=== PATIENT | male | born 1935 | race Caucasian/White ===

== ENCOUNTER 2017-01-22 10:10 | Inpatient (IN) | payer OTHER ==
[~2017-01-22] VITALS: Ht 182.9 cm; Wt 86.7 kg
--- NOTE | 2017-01-22 10:10 | NUR ---
Patient was BIBA and taken to bed 03 via gurney per EMS.
--- NOTE | 2017-01-22 10:12 | NUR ---
Dr. Moore evaluating patient at bedside.
[2017-01-22 10:15] VITALS: BP 98/60
[2017-01-22] MEDS ORDERED: METF500T2 PO (10:23)
--- NOTE | 2017-01-22 10:25 | NUR ---
[facility] SPOKE WITH YAMILETH TORRES STS PT REFUSED BREAKFAST TODAY AND REFUSED MORNING MEDS TODAY. C/O BACK PAIN AND ASKED TO GO TO THE HOSPITAL. AND CHECK BP AND BP LOW. MELISSA CARSON SAID NO MEDICATIONS GIVEN TODAY.
[2017-01-22] MEDS ORDERED: NACL 0.9% 2,000 ML IV SCH (10:27)
--- NOTE | 2017-01-22 10:28 | NUR ---
ASSUMED CARE OF PATIENT; 81/M CARMEN FROM [facility] FOR BACK PAIN; DENIES BACK PAIN AT THIS TIME; UPON EMS ARRIVAL BP 80/50 ON SCENE; PATIENT CHIEF COMPLAINT OF INTERMIITENT ABD PAIN, DIARRHEA X 1 DAY WITH DARK STOOLS, AND DECREASED APPETITE; PATIENT IS A&OX4; NO NUERO DEFICITS NOTED AT THIS TIME; PATIENT HAS REPORTED HISTORY OF DEMENTIA; PATIENT SINUS TACHYCARDIA ON ENGINEER THIRD ASSISTANT; NO EDEMA NOTED; ABD PAIN MILD TENDERESS TO ALL QUADRANTS; PATIENT C/O DIARRHEA X 1 DAY WITH DARK STOOLS AND DECREASED APPETITE; DENIES N/V; DENIES ANY COMPLAINTS; ER MD MAYORGA BY BEDSIDE; PATIENT DENIES ANY PAIN AT THIS TIME; ALL NEEDS MET AT THIS TIME; WILL CONTINUE TO MONITOR
--- NOTE | 2017-01-22 10:33 | NUR ---
HR IMPROVED; SEE VITALS; AWARE; PATIENT IN NO ACUTE DISTRESS; PATIENT DENIES ANY CP, SOB AT THIS TIME; PATIENT TALKING IN FULL SENTENCES TO STAFF; WILL CONTINUE TO MONITOR
[2017-01-22] MEDS ORDERED: MEMA10TA PO (10:35)
[2017-01-22] MEDS ORDERED: CLOP75TA PO (10:35)
[2017-01-22] MEDS ORDERED: DONE10TA3 PO (10:35)
[2017-01-22] MEDS ORDERED: ASPI81TA PO (10:35)
[2017-01-22] MEDS ORDERED: SIMV10TA1 PO (10:35)
[2017-01-22] MEDS ORDERED: LISI10TA11 PO (10:35)
[2017-01-22] MEDS ORDERED: GLIP5TER PO (10:35)
[2017-01-22] MEDS ORDERED: HYDR25TA86 PO (10:35)
--- NOTE | 2017-01-22 10:38 | NUR ---
XRAY at bedside.
[2017-01-22 10:47] LABS: MEAN CORPUSCULAR HGB CONC 32 g/dL (33-37); NEUTROPHILS % (AUTO) 75.9 % (42.2-75.2)
--- NOTE | 2017-01-22 10:48 | NUR ---
US AT BEDSIDE.
[2017-01-22 10:55] LABS: BASOPHILS # (AUTO) 0.2 K/uL (0.00-0.22); BASOPHILS % (AUTO) 2.2 % (0.0-2.0); EOSINOPHILS # (AUTO) 0.4 K/uL (0-0.4); EOSINOPHILS % (AUTO) 3.5 % (0.0-4.0); HEMOGLOBIN 14.4 g/dL (12.0-18.0); LYMPHOCYTES # (AUTO) 1.2 K/uL (2.0-11.5); LYMPHOCYTES % (AUTO) 11.1 % (20.5-51.1); MEAN CORPUSCULAR HEMOGLOBIN 29 pg (27-31); MEAN CORPUSCULAR VOLUME 89 fL (80-94); MONOCYTES # (AUTO) 0.8 K/uL (0.8-1.0); MONOCYTES % (AUTO) 7.3 % (1.7-9.3); PLATELET COUNT (AUTO) 291 K/uL (140-450); RED BLOOD CELL COUNT(AUTO) 5.04 MIL/uL (4.20-6.10); RED CELL DISTRIBUTION WIDTH 13.4 % (11.6-13.7); WHITE BLOOD COUNT (AUTO) 10.6 K/uL (4.8-10.8)
[2017-01-22 11:00] LABS: ANION GAP 13.7 (8-16); CALCIUM 8.7 mg/dL (8.5-10.1); CARBON DIOXIDE 28.5 mmol/L (21-32); CHLORIDE 101 mmol/L (98-107); CREATININE 2.6 mg/dL (0.7-1.3); GLUCOSE 172 mg/dL (74-106); POTASSIUM 4.2 mmol/L (3.5-5.1); SODIUM SERUM 139 mmol/L (136-145); UREA NITROGEN, BLOOD 50 mg/dL (7-18)
[2017-01-22 11:06] LABS: ALANINE AMINOTRANSFERASE 16 U/L (16-63); ALBUMIN 3.2 g/dL (3.4-5.0); ALKALINE PHOSPHATASE 93 U/L (46-116); ASPARTATE AMINOTRANSFERASE 19 U/L (15-37); TOTAL BILIRUBIN 0.6 mg/dL (0.0-1.0); TOTAL PROTEIN, SERUM 7.5 g/dL (6.4-8.2)
[2017-01-22 11:11] LABS: INR 1.2 (0.8-1.2); PARTIAL THROMBOPLASTIN TIME 23.9 secs (22-35.6); PROTHROMBIN TIME 11.9 secs (10.8-13.4)
[2017-01-22] MEDS ORDERED: ASPIRIN 81 MG TAB.CHEW PO ONE (11:30)
[2017-01-22 11:45] LABS: LACTIC ACID 1.3 mmol/L (0.4-2.0)
--- NOTE | 2017-01-22 11:51 | NUR ---
PT APPEARS TO BE RESTING COMFORTABLY IN BED; STATES NO ACUTE DISTRESS AT THIS TIME; VSS; RR EVEN/UNLABORED; GRAND DAUGHTER AT BEDSIDE; POSITIONED FOR COMFORT; WILL CONTINUE TO MONITOR.
--- NOTE | 2017-01-22 12:14 | NUR ---
TRIED TO CALL TO GIVE REPORT; MED SURG NURSE INFORMATICIST ASKED TO CALL BACK IN 5 MINS; WILL FOLLOW UP
--- NOTE | 2017-01-22 12:25 | NUR ---
REPORT GIVEN TO SAM BHANDARI RN; AWAITING ADMIT ORDERS
[2017-01-22] MEDS ORDERED: ONDANSETRON 4 MG/2 ML VIAL IVP PRN (12:30)
[2017-01-22] MEDS ORDERED: ACETAMINOPHEN 325 MG TAB PO PRN (12:30)
[2017-01-22] MEDS ORDERED: LORazepam 2 MG/ML VIAL IVP PRN (12:30)
[2017-01-22] MEDS ORDERED: DEXTROSE 50% 50 ML SYR IVP PRN (12:30)
[2017-01-22] MEDS ORDERED: HYDROcodone/APAP 5/325 MG 1 TAB TAB PO PRN (12:30)
--- NOTE | 2017-01-22 12:30 | NUR ---
PT ARRIVED TO UNIT FROM ER, PT IS AAOX4, ON O2 2L VIA NC, SKIN INTACT, IV TO LEFT AC 20G PATENT AND INTACT, RIGHT AC 20G PATENT AND INTACT, INITIAL ASSESSMENT COMPLETED, REVIEWED PLAN OF CARE WITH PT, PT VERBALIZED UNDERSTANDING, ORIENTED PT TO ROOM AND ENVIRONMENT, ALL SAFETY PRECAUTIONS MET, CALL LIGHT WITHIN REACH. WILL CONTINUE TO MONITOR.
--- NOTE | 2017-01-22 12:36 | NUR ---
[facility]. Admited to TELE. Will go to room 123A. Belongings list completed. Report to SAM DESHPANDE RN.
[2017-01-22 12:38] LABS: BILIRUBIN,URINE 1+ (NEGATIVE); BLOOD, URINE TRACE-I (NEGATIVE); COLOR,URINE YELLOW (YELLOW); LEUKOCYTE ESTERASE ,URINE 2+ (NEGATIVE); PH,URINE 5.5 (5.0-9.0); PROTEIN,URINE 1+ (NEGATIVE); UGLUCOSE NEGATIVE (NEGATIVE); UROBILINOGEN,URINE 0.2 EU/dL (0.2 - 1)
[2017-01-22] MEDS: DEXT 5% /NACL 0.9% 1,000 ML IV SCH (12:48)
[2017-01-22 12:51] LABS: APPEARANCE,URINE SLIGHTLY HAZY (CLEAR)
[2017-01-22 12:52] LABS: ICTOTEST NEGATIVE (NEGATIVE)
[2017-01-22 12:54] LABS: BACTERIA,URINE 1+ /HPF (None Seen); NITRITE, URINE POSITIVE (NEGATIVE); RBC,URINE 0-5 (RARE) /HPF (0-5)
[2017-01-22 12:55] LABS: SQUAMOUS EPITHELIAL CELL,UR 0-3 (FEW) /LPF (0-3 (FEW))
--- NOTE | 2017-01-22 13:45 | NUR ---
PT CURRENTLY SLEEPING, CALL LIGHT WITHIN REACH. WILL CONTINUE TO MONITOR.
[2017-01-22 16:00] VITALS: BP 94/56
--- NOTE | 2017-01-22 16:05 | NUR ---
CHECKED IN ON PT, PT STATES NO SOB OR CHEST PAIN AT THIS TIME. ALL NEEDS MET. WILL CONTINUE TO MONITOR.
[2017-01-22] MEDS: BLOOD GLUCOSE MONITORING 1 DEV DEV FS SCH ×2 (16:38→20:35)
--- NOTE | 2017-01-22 18:08 | NUR ---
PT CURRENTLY EATING DINNER, NO S/S OF RESPIRATORY DISTRESS NOTED. ALL NEEDS MET. WILL CONTINUE TO MONITOR.
[2017-01-22 19:13] LABS: CREATINE KINASE MB 1.2 ng/mL (0-3.6)
--- NOTE | 2017-01-22 19:17 | NUR ---
ENDORSED PLAN OF CARE TO NIGHT NURSE. PT IN STABLE CONDITION.
--- NOTE | 2017-01-22 19:30 | NUR ---
RECEIVED REPORT FROM DAY RN AT BEDSIDE, PATIENT IS AAOX4 ON O2 2L NC, NO SOB OR SIGN OF DISTRESS AT THIS TIME, IV TO RIGHT FA AND LEFT AC PATENT AND INTACT, SKIN INTACT, PT DENIES PAIN AT THIS TIME, DISCUSSED PLAN OF CARE WITH PATIENT, PT VERBALIZED UNDERSTANDING, CALL LIGHT WITHIN REACH. WILL CONTINUE TO MONITOR.
[2017-01-22 20:00] VITALS: BP 95/45
[2017-01-22] MEDS: SIMVASTATIN 10 MG TAB PO SCH (20:35)
--- NOTE | 2017-01-22 20:37 | NUR ---
PM MEDS ADMINISTERED, PT TOLERATED WELL, CALL LIGHT WITHIN REACH, WILL CONTINUE TO MONITOR
[2017-01-23] VITALS: BP 98/55
--- NOTE | 2017-01-23 00:26 | NUR ---
VITAL SIGNS STABLE, NO SOB OR SIGN OF DISTRESS, CALL LIGHT WITHIN REACH, WILL CONTINUE TO MONITOR
--- NOTE | 2017-01-23 02:00 | NUR ---
PT SLEEPING, NO SOB OR SIGN OF DISTRESS AT THIS TIME, CALL LIGHT WITHIN REACH. WILL CONTINUE TO MONITOR.
[2017-01-23 03:07] LABS: CREATINE KINASE MB 0.8 ng/mL (0-3.6)
[2017-01-23 04:00] VITALS: BP 98/47
--- NOTE | 2017-01-23 04:00 | NUR ---
VITAL SIGNS STABLE, NO SOB OR SIGN OF DISTRESS, CALL LIGHT WITHIN REACH. WILL CONTINUE TO MONITOR.
[2017-01-23 06:00] LABS: BASOPHILS # (AUTO) 0.2 K/uL (0.00-0.22); BASOPHILS % (AUTO) 2.1 % (0.0-2.0); EOSINOPHILS # (AUTO) 0.4 K/uL (0-0.4); EOSINOPHILS % (AUTO) 4.6 % (0.0-4.0); HEMATOCRIT 38.5 % (36-52); HEMOGLOBIN 12.5 g/dL (12.0-18.0); LYMPHOCYTES % (AUTO) 23.8 % (20.5-51.1); MEAN CORPUSCULAR HEMOGLOBIN 29 pg (27-31); MEAN CORPUSCULAR HGB CONC 33 g/dL (33-37); MEAN CORPUSCULAR VOLUME 89 fL (80-94); MONOCYTES # (AUTO) 0.7 K/uL (0.8-1.0); MONOCYTES % (AUTO) 8.8 % (1.7-9.3); NEUTROPHILS # (AUTO) 5.2 K/uL (1.8-7.7); NEUTROPHILS % (AUTO) 60.7 % (42.2-75.2); PLATELET COUNT (AUTO) 233 K/uL (140-450); RED CELL DISTRIBUTION WIDTH 13.9 % (11.6-13.7); WHITE BLOOD COUNT (AUTO) 8.5 K/uL (4.8-10.8)
[2017-01-23 06:24] LABS: MAGNESIUM 1.6 mg/dL (1.8-2.4); PHOSPHORUS 3.5 mg/dL (2.5-4.9)
[2017-01-23] MEDS: BLOOD GLUCOSE MONITORING 1 DEV DEV FS SCH ×4 (06:28→21:27)
[2017-01-23] MEDS: INSULIN LISPRO SLIDING SCALE 100 UNITS/ML VIAL SUBQ PRN ×2 (06:28→12:31)
[2017-01-23 06:35] LABS: CARBON DIOXIDE 28.4 mmol/L (21-32); CHLORIDE 105 mmol/L (98-107); CREATININE 1.5 mg/dL (0.7-1.3); GLUCOSE 169 mg/dL (74-106); POTASSIUM 4.4 mmol/L (3.5-5.1); SODIUM SERUM 140 mmol/L (136-145); UREA NITROGEN, BLOOD 29 mg/dL (7-18)
--- NOTE | 2017-01-23 07:30 | NUR ---
ENDORSED PATIENT TO DAY RN AT BEDSIDE, PATIENT IN STABLE CONDITION
--- NOTE | 2017-01-23 07:35 | NUR ---
RECEIVED REPORT FROM JAYLON SCHMID. PT IS RESTING IN BED, A/OX3, BEDREST, IV IS ON LT AC, PATENT, INTACT, FLUSHING WELL, PT IS ON O2 2L NC, NO S/S OF RESPIRATORY DISTRESS OR DISCOMFORT NOTED, SAFETY/FALL PRECAUTIONS ARE IN PLACE, DISCUSSED PLAN OF CARE WITH PT, PT VERBALIZED UNDERSTANDING, CALL LIGHT IS WITHIN REACH, WILL CONTINUE TO MONITOR.
[2017-01-23 08:00] VITALS: BP 94/47
[2017-01-23] MEDS ORDERED: metFORMIN 500 MG TAB PO SCH (08:00)
[2017-01-23] MEDS: CLOPIDOGREL 75 MG TAB PO SCH (08:37)
[2017-01-23] MEDS: MEMANTINE 10 MG TAB PO SCH (08:37)
[2017-01-23] MEDS: DONEPEZIL 10 MG TAB PO SCH (08:37)
[2017-01-23] MEDS: glipiZIDE ER 5 MG TABER PO SCH (08:37)
[2017-01-23] MEDS: ASPIRIN 81 MG TAB.CHEW PO SCH (08:37)
[2017-01-23] MEDS: DEXT 5% /NACL 0.9% 1,000 ML IV SCH (08:38)
[2017-01-23] MEDS: LISINOPRIL 10 MG TAB PO SCH (08:41)
[2017-01-23] MEDS: HYDROCHLOROTHIAZIDE 25 MG TAB PO SCH (08:41)
--- NOTE | 2017-01-23 09:44 | NUR ---
PATIENT HAS BEEN SCREENED AND CATEGORIZED HIGH NUTRITION RISK. PATIENT WILL BE SEEN WITHIN 1-2 DAYS OF ADMISSION. 01/23/17-01/24/[address]
[2017-01-23 12:00] VITALS: BP 114/60
--- NOTE | 2017-01-23 12:45 | NUR ---
SPOKE WITH ZOHAIB AT [facility], . SHE SAID THE CM WILL BE EMELY PHONE [phone] FAX [phone]. FAXED INITIAL REVIEW TO [facility].
--- NOTE | 2017-01-23 13:07 | NUR ---
01/23/17 RD INITIAL ASSESSMENT COMPLETED PLEASE REFER TO NUTRITION ASSESSMENT UNDER CARE ACTIVITY FOR ESTIMATED NUTRITIONAL NEEDS. 1. CONTINUE 60 G CONSISTENT CARBOHYDRATE, CARDIAC DIET 2. ADD SNACKS BID 3. RD TO FOLLOW-UP 2-3 DAYS; HIGH RISK MARIA G GREGORIO, MIKE
[2017-01-23 16:00] VITALS: BP 114/70
[2017-01-23] MEDS ORDERED: MAG SULF 2000 MG/WATER PREMIX 50 ML IV ONE (19:20)
--- NOTE | 2017-01-23 19:33 | NUR ---
ENDORSED PT TO JAYLON ENRIQUEZ FOR CONTINUITY OF CARE. PT STABLE AT THIS TIME.
--- NOTE | 2017-01-23 19:35 | NUR ---
RECEIVED REPORTS FROM DAY RN, PATIENT RESTING IN BED, NO S/S OF ACUTE DISTRESS NOTED, PATIENT AWAKE ALERT ORIENTED X4, CONVERSATION CARRIED ON, NOTED SOME RESPONSES WERE NOT LOGICAL. PATIENT'S RESPIRATION EVEN AND UNLABORED, ON 2L O2NC, IV PATENT AND INTACT, INFUSING D5NS AT 5OML/HR. CALL LIGHT WITHIN REACH, SIDE RAIL UP X2, BED AT LOWEST POSITION, HEAD OF BED ELEVATED AT 30 DEGREE, WILL CONTINUE TO MONITOR
[2017-01-23 20:00] VITALS: BP 108/62
--- NOTE | 2017-01-23 20:13 | NUR ---
PATIENT RESTING IN BED, MAGNESIUM SULF 2000MG STARTED, PATIENT TOLERATED WELL. WILL CONTINUE TO MONITOR.
[2017-01-23] MEDS: SIMVASTATIN 10 MG TAB PO SCH (21:31)
[2017-01-24] VITALS: BP 126/61
--- NOTE | 2017-01-24 00:33 | NUR ---
PATIENT SLEEPING IN BED, EASY TO AROUSE, VITAL SIGNS TAKEN, WITHIN NORMAL RANGE, CALL LIGHT WITHIN REACH, SAFETY MEASURE ENSURED, WILL CONTINUE TO MONITOR.
--- NOTE | 2017-01-24 02:15 | NUR ---
MADE ROUNDS, PATIENT SLEEPING IN BED, EASY TO AROUSE, NO S/S OF ACUTE DISTRESS NOTED, RESPIRATION EVEN AND UNLABORED, ON 2L O2NC, CALL LIGHT WITHIN REACH, SIDE RAIL UP X2, BED AT LOWEST POSITION, HEAD OF BED ELEVATED AT 30 DEGREE, WILL CONTINUE TO MONITOR
[2017-01-24 04:00] VITALS: BP 117/66
[2017-01-24] MEDS: DEXT 5% /NACL 0.9% 1,000 ML IV SCH (04:30)
[2017-01-24 07:01] LABS: BASOPHILS # (AUTO) 0.2 K/uL (0.00-0.22); BASOPHILS % (AUTO) 1.8 % (0.0-2.0); EOSINOPHILS # (AUTO) 0.4 K/uL (0-0.4); HEMATOCRIT 43.6 % (36-52); HEMOGLOBIN 13.9 g/dL (12.0-18.0); LYMPHOCYTES % (AUTO) 23.9 % (20.5-51.1); MEAN CORPUSCULAR HEMOGLOBIN 29 pg (27-31); MEAN CORPUSCULAR HGB CONC 32 g/dL (33-37); MEAN CORPUSCULAR VOLUME 89 fL (80-94); MONOCYTES # (AUTO) 0.6 K/uL (0.8-1.0); MONOCYTES % (AUTO) 7.3 % (1.7-9.3); NEUTROPHILS # (AUTO) 5.1 K/uL (1.8-7.7); PLATELET COUNT (AUTO) 256 K/uL (140-450); RED BLOOD CELL COUNT(AUTO) 4.89 MIL/uL (4.20-6.10); RED CELL DISTRIBUTION WIDTH 13.4 % (11.6-13.7); WHITE BLOOD COUNT (AUTO) 8.3 K/uL (4.8-10.8)
[2017-01-24 07:12] LABS: ANION GAP 10.2 (8-16); CALCIUM 8.8 mg/dL (8.5-10.1); CARBON DIOXIDE 31.2 mmol/L (21-32); CHLORIDE 103 mmol/L (98-107); CREATININE 1.2 mg/dL (0.7-1.3); GLUCOSE 133 mg/dL (74-106); POTASSIUM 4.4 mmol/L (3.5-5.1); SODIUM SERUM 140 mmol/L (136-145); UREA NITROGEN, BLOOD 16 mg/dL (7-18)
[2017-01-24] MEDS: BLOOD GLUCOSE MONITORING 1 DEV DEV FS SCH ×4 (07:12→20:21)
[2017-01-24 07:24] LABS: MAGNESIUM 1.9 mg/dL (1.8-2.4); PHOSPHORUS 3.4 mg/dL (2.5-4.9)
--- NOTE | 2017-01-24 07:40 | NUR ---
ENDORSED PLAN OF CARE TO DAY RN, PATIENT IS IN STABLE CONDITION.
--- NOTE | 2017-01-24 07:45 | NUR ---
RECEIVED REPORT FROM JAYLON ENRIQUEZ. PT IS SLEEPING IN BED BUT EASILY AWAKEN, A/OX3, BEDREST, IV IS ON LT AC, PATENT, INTACT, FLUSHING WELL, PT IS ON O2 2L NC, NO S/S OF RESPIRATORY DISTRESS OR DISCOMFORT NOTED, SAFETY/FALL PRECAUTIONS ARE IN PLACE, DISCUSSED PLAN OF CARE WITH PT, PT VERBALIZED UNDERSTANDING, CALL LIGHT IS WITHIN REACH, WILL CONTINUE TO MONITOR.
[2017-01-24 08:00] VITALS: BP 120/63
[2017-01-24] MEDS ORDERED: LEVOFLOXACIN 500 MG/D5W PREMIX 100 ML IV SCH (09:00)
[2017-01-24] MEDS: HYDROCHLOROTHIAZIDE 25 MG TAB PO SCH (09:03)
[2017-01-24] MEDS: LISINOPRIL 10 MG TAB PO SCH (09:03)
[2017-01-24] MEDS: DONEPEZIL 10 MG TAB PO SCH (09:03)
[2017-01-24] MEDS: MEMANTINE 10 MG TAB PO SCH (09:04)
[2017-01-24] MEDS: glipiZIDE ER 5 MG TABER PO SCH (09:04)
[2017-01-24] MEDS: ASPIRIN 81 MG TAB.CHEW PO SCH (09:04)
[2017-01-24] MEDS: CLOPIDOGREL 75 MG TAB PO SCH (09:04)
--- NOTE | 2017-01-24 09:05 | NUR ---
DUE MEDICATIONS GIVEN, PT TOLERATED WELL, CALL LIGHT WITHIN REACH, WILL CONTINUE TO MONITOR.
--- NOTE | 2017-01-24 11:10 | NUR ---
PT IS RESTING IN BED, WATCHING TV, CALL LIGHT IS WITHIN REACH.
[2017-01-24 12:00] VITALS: BP 96/50
[2017-01-24] MEDS: metroNIDAZOLE 500 MG/NS PREMIX 100 ML IV SCH ×2 (12:07→20:52)
[2017-01-24] MEDS: INSULIN LISPRO SLIDING SCALE 100 UNITS/ML VIAL SUBQ PRN (12:08)
--- NOTE | 2017-01-24 12:30 | NUR ---
PT IS SITTING ON CHAIR AT BEDSIDE EATING LUNCH, CALL LIGHT WITHIN REACH.
--- NOTE | 2017-01-24 14:45 | NUR ---
PT IS RESTING IN BED IN SEMI FOWLERS POSITION, NO S/S OF RESPIRATORY DISTRESS OR DISCOMFORT NOTED, CALL LIGHT WITHIN REACH.
[2017-01-24 16:00] VITALS: BP 90/43
--- NOTE | 2017-01-24 16:40 | NUR ---
PT IS RESTING IN BED WATCHING TV, NO S/S OF RESPIRATORY DISTRESS OR DISCOMFORT NOTED, CALL LIGHT WITHIN REACH.
--- NOTE | 2017-01-24 17:30 | NUR ---
PATIENT'S BLOOD PRESSURE INCREASED TO BP:102/52, HR:71, O2:96% ON O2 2L NC.
--- NOTE | 2017-01-24 18:00 | NUR ---
PT IS SITTING ON CHAIR AT BEDSIDE EATING DINNER, CALL LIGHT WITHIN REACH, WILL CONTINUE TO MONITOR.
--- NOTE | 2017-01-24 19:10 | NUR ---
ENDORSED PT TO RN. ZOE FOR CONTINUITY OF CARE. PT STABLE AT THIS TIME.
--- NOTE | 2017-01-24 19:15 | NUR ---
RECEIVED REPORTS FROM DAY RN, PATIENT RESTING IN BED, NO S/S OF ACUTE DISTRESS NOTED, PATIENT AWAKE ALERT ORIENTED X4, CONVERSATION CARRIED ON, SOME RESPONSES WERE NOT COMPREHENSIVE. PATIENT'S RESPIRATION EVEN AND UNLABORED, ON 2L O2NC, IV PATENT AND INTACT, INFUSING D5NS AT 5OML/HR. PLAN OF CARE DISCUSSED, PATIENT VERBALIZED UNDERSTANDING, CALL LIGHT WITHIN REACH, SIDE RAIL UP X2, BED AT LOWEST POSITION, HEAD OF BED ELEVATED AT 30 DEGREE, WILL CONTINUE TO MONITOR
[2017-01-24 20:00] VITALS: BP 95/48
[2017-01-24] MEDS: SIMVASTATIN 10 MG TAB PO SCH (20:52)
--- NOTE | 2017-01-24 21:05 | NUR ---
PM FLAGYL STARTED, PATIENT TOLERATED WELL. PATIENT RESTING IN BED, NO S/S OF ACUTE DISTRESS NOTED, CALL LIGHT WITHIN REACH, SIDE RAIL UP X2, BED AT LOWEST POSITION, BED ALARM ON, WILL CONTINUE TO MONITOR.
--- NOTE | 2017-01-24 21:24 | NUR ---
IV ON THE LT FOREARM INFILTRATED, IV TAKEN OUT, TIP INTACT. NO SWELLING OR REDNESS NOTED AT THE IV SITE. WILL CONTINUE TO MONITOR.
--- NOTE | 2017-01-24 23:30 | NUR ---
MADE ROUNDS, PATIENT ASLEEP IN BED, NO S/S OF ACUTE DISTRESS NOTED, RESPIRATION EVEN AND UNLABORED, EASY TO AROUSE. CALL LIGHT WITHIN REACH, SAFETY MEASURE ENSURED, WILL CONTINUE TO MONITOR.
[2017-01-25] VITALS: BP 102/60
[2017-01-25] MEDS ORDERED: ACETAMINOPHEN 325 MG TAB PO SCH
--- NOTE | 2017-01-25 01:03 | NUR ---
PATIENT ASLEEP IN BED, NO S/S OF ACUTE DISTRESS NOTED, RESPIRATION EVEN AND UNLABORED. PATIENT HAS NOT MADE BOWEL MOVEMENT YET, SO NO STOOL COLLECTED AT THIS TIME. CALL LIGHT WITHIN REACH, SAFETY MEASURE ENSURED, WILL CONTINUE TO MONITOR
--- NOTE | 2017-01-25 02:10 | NUR ---
PATIENT SPILLED URINE FROM THE URINAL, CODING MACHINE OPERATOR IS CLEANING PATIENT AND CHANGING THE LINEN. PATIENT IS NOT IN ANY DISTRESS. WILL CONTINUE TO MONITOR.
[2017-01-25 04:00] VITALS: BP 102/50
[2017-01-25] MEDS: metroNIDAZOLE 500 MG/NS PREMIX 100 ML IV SCH (04:16)
--- NOTE | 2017-01-25 04:20 | NUR ---
AM FLAGYL STARTED, PATIENT TOLERATED WELL. NO S/S OF ACUTE DISTRESS NOTED, RESPIRATION EVEN AND UNLABORED, SIDE RAIL UP X2, BED ALARM ON, BED AT THE LOWEST POSITION. SAFETY MEASURE ENSURED, WILL CONTINUE TO MONITOR.
--- NOTE | 2017-01-25 06:01 | NUR ---
PATIENT ASLEEP IN BED, NO S/S OF ACUTE DISTRESS NOTED, RESPIRATION EVEN AND UNLABORED, EASY TO AROUSE. PATIENT HAS NOT MADE BOWEL MOVEMENT YET, SO NO STOOL COLLECTED AT THIS TIME. OFFERED PATIENT WARM BLANKET PATIENT REQUESTED, CALL LIGHT WITHIN REACH, SAFETY MEASURE ENSURED, WILL CONTINUE TO MONITOR.
[2017-01-25] MEDS: BLOOD GLUCOSE MONITORING 1 DEV DEV FS SCH ×3 (06:37→16:49)
--- NOTE | 2017-01-25 06:42 | NUR ---
PATIENT IS SLEEPING IN BED, RESPIRATION EVEN AND UNLABORED, EASY TO AROUSE, BLOOD SUGAR 139, CALL LIGHT WITHIN REACH, SAFETY MEASURE ENSURED, WILL CONTINUE TO MONITOR.
--- NOTE | 2017-01-25 07:13 | NUR ---
ENDORSED PLAN OF CARE TO DAY RN. PATIENT IS RESTING IN BED AND IN STABLE CONDITION.
--- NOTE | 2017-01-25 07:14 | NUR ---
RECEIVED REPORT FROM JAYLON ENRIQUEZ. PT IS SLEEPING IN BED BUT EASILY AWAKEN, A/OX3, BEDREST, IV IS ON RT WRIST, PATENT, INTACT, FLUSHING WELL, PT IS ON O2 2L NC, NO S/S OF RESPIRATORY DISTRESS OR DISCOMFORT NOTED, SAFETY/FALL PRECAUTIONS ARE IN PLACE, DISCUSSED PLAN OF CARE WITH PT, PT VERBALIZED UNDERSTANDING, CALL LIGHT IS WITHIN REACH, WILL CONTINUE TO MONITOR.
[2017-01-25 07:34] LABS: BASOPHILS # (AUTO) 0.2 K/uL (0.00-0.22); BASOPHILS % (AUTO) 2.2 % (0.0-2.0); EOSINOPHILS # (AUTO) 0.4 K/uL (0-0.4); EOSINOPHILS % (AUTO) 4.2 % (0.0-4.0); HEMATOCRIT 39.2 % (36-52); HEMOGLOBIN 12.9 g/dL (12.0-18.0); LYMPHOCYTES # (AUTO) 1.8 K/uL (2.0-11.5); LYMPHOCYTES % (AUTO) 20.8 % (20.5-51.1); MEAN CORPUSCULAR HEMOGLOBIN 30 pg (27-31); MEAN CORPUSCULAR HGB CONC 33 g/dL (33-37); MEAN CORPUSCULAR VOLUME 90 fL (80-94); MONOCYTES # (AUTO) 0.9 K/uL (0.8-1.0); MONOCYTES % (AUTO) 10.4 % (1.7-9.3); NEUTROPHILS # (AUTO) 5.4 K/uL (1.8-7.7); NEUTROPHILS % (AUTO) 62.4 % (42.2-75.2); PLATELET COUNT (AUTO) 245 K/uL (140-450); RED BLOOD CELL COUNT(AUTO) 4.36 MIL/uL (4.20-6.10); RED CELL DISTRIBUTION WIDTH 13.8 % (11.6-13.7); WHITE BLOOD COUNT (AUTO) 8.7 K/uL (4.8-10.8)
[2017-01-25 07:45] LABS: ANION GAP 6.9 (8-16); CALCIUM 8.3 mg/dL (8.5-10.1); CARBON DIOXIDE 31.9 mmol/L (21-32); CHLORIDE 105 mmol/L (98-107); CREATININE 1.2 mg/dL (0.7-1.3); GLUCOSE 143 mg/dL (74-106); POTASSIUM 4.8 mmol/L (3.5-5.1); SODIUM SERUM 139 mmol/L (136-145); UREA NITROGEN, BLOOD 17 mg/dL (7-18)
[2017-01-25 07:53] LABS: MAGNESIUM 1.6 mg/dL (1.8-2.4); PHOSPHORUS 3.4 mg/dL (2.5-4.9)
[2017-01-25 08:00] VITALS: BP 106/60
[2017-01-25] MEDS: glipiZIDE ER 5 MG TABER PO SCH (08:50)
[2017-01-25] MEDS: CLOPIDOGREL 75 MG TAB PO SCH (08:51)
[2017-01-25] MEDS: MEMANTINE 10 MG TAB PO SCH (08:51)
[2017-01-25] MEDS: ASPIRIN 81 MG TAB.CHEW PO SCH (08:52)
[2017-01-25] MEDS: DONEPEZIL 10 MG TAB PO SCH (08:52)
--- NOTE | 2017-01-25 08:52 | NUR ---
DUE MEDICATIONS GIVEN, PT TOLERATED WELL, CALL LIGHT WITHIN REACH, WILL CONTINUE TO MONITOR.
[2017-01-25] MEDS: LISINOPRIL 10 MG TAB PO SCH (08:54)
[2017-01-25] MEDS ORDERED: HYDROCHLOROTHIAZIDE 25 MG TAB PO SCH (09:00)
[2017-01-25] MEDS ORDERED: SULFAMETH/TRIMETH DS 800/160MG 1 TAB PO SCH (09:00)
--- NOTE | 2017-01-25 09:15 | NUR ---
PT SITTING ON CHAIR AT BEDSIDE EATING BREAKFAST, CALL LIGHT IS WITHIN REACH, WILL CONTINUE TO MONITOR.
[2017-01-25] MEDS ORDERED: SULF1TAB12 PO (09:16)
[2017-01-25] MEDS ORDERED: METR500T1 PO (09:16)
[2017-01-25] MEDS ORDERED: ORE25 PO (09:16)
[2017-01-25] MEDS ORDERED: MAG SULF 2000 MG/WATER PREMIX 50 ML IV SCH (09:30)
--- NOTE | 2017-01-25 11:10 | NUR ---
PT IS SLEEPING IN BED AT THIS TIME, CALL LIGHT WITHIN REACH.
[2017-01-25] MEDS: INSULIN LISPRO SLIDING SCALE 100 UNITS/ML VIAL SUBQ PRN ×2 (11:35→16:57)
--- NOTE | 2017-01-25 11:44 | NUR ---
SPOKE WITH PT'S DAUGHTER MARISEL AND SHE STATED SHE WILL [employer]RAFTS TEACHER PT TODAY IN 4 HOURS (SHE IS COMING FROM [place]). CALLED DR. NERY PARSONS AND GAVE HIM THE NUMBER OF PT'S PREFERRED PHARMACY ([facility] [phone]). CHRISTA -JAYLON IN CHARGE OF PT MADE AWARE.
[2017-01-25 12:00] VITALS: BP 102/73
[2017-01-25] MEDS ORDERED: metroNIDAZOLE 500 MG TAB PO SCH (13:00)
--- NOTE | 2017-01-25 13:15 | NUR ---
PT IS RESTING IN BED WATCHING TV, NO S/S OF RESPIRATORY DISTRESS OR DISCOMFORT NOTED, CALL LIGHT WITHIN REACH.
--- NOTE | 2017-01-25 14:30 | NUR ---
I CALLED [facility] GAVE REPORT TO MELISSA MISTRY.
--- NOTE | 2017-01-25 15:15 | NUR ---
PT IS RESTING IN BED WATCHING TV, CALL LIGHT WITHIN REACH.
[2017-01-25 16:00] VITALS: BP 101/60
--- NOTE | 2017-01-25 17:10 | NUR ---
DISCHARGE INSTRUCTIONS GIVEN TO PT AND FAMILY MEMBER (MARISEL), ID WRIST BAND REMOVED, IV REMOVED, CATHETER TIP INTACT, PT STABLE UPON DISCHARGE ACCOMPANIED BY FAMILY MEMBER.
== END 2017-01-25 17:10 | disposition home or self-care (01) | DRG 871 ==
LOC: MED 10:10 → MTU 12:30
PROVIDERS: ADMIT Preventive Medicine Preventive Medicine/Occupational Environmental Medicine; ATTEND Preventive Medicine Preventive Medicine/Occupational Environmental Medicine
DX: A41.9 Sepsis, unspecified organism (principal); J96.00 Acute respiratory failure, unspecified whether with hypoxia or hypercapnia; N39.0 Urinary tract infection, site not specified; N17.9 Acute kidney failure, unspecified; F02.80 Dementia in other diseases classified elsewhere, unspecified severity, without behavioral disturbance, psychotic disturbance, mood disturbance, and anxiety; E78.5 Hyperlipidemia, unspecified; E83.42 Hypomagnesemia; Z66 Do not resuscitate; I12.9 Hypertensive chronic kidney disease with stage 1 through stage 4 chronic kidney disease, or unspecified chronic kidney disease; E11.22 Type 2 diabetes mellitus with diabetic chronic kidney disease; I25.10 Atherosclerotic heart disease of native coronary artery without angina pectoris; E86.0 Dehydration; E83.51 Hypocalcemia; B96.20 Unspecified Escherichia coli [E. coli] as the cause of diseases classified elsewhere; B96.89 Other specified bacterial agents as the cause of diseases classified elsewhere; E11.65 Type 2 diabetes mellitus with hyperglycemia; I11.9 Hypertensive heart disease without heart failure; I71.4 Abdominal aortic aneurysm, without rupture; N40.0 Benign prostatic hyperplasia without lower urinary tract symptoms; Z90.49 Acquired absence of other specified parts of digestive tract; Z86.12 Personal history of poliomyelitis; Z79.82 Long term (current) use of aspirin; Z79.899 Other long term (current) drug therapy; Z87.891 Personal history of nicotine dependence; Z79.84 Long term (current) use of oral hypoglycemic drugs
CPT/HCPCS: 36415; 71010; 76700; 80048; 80053; 81001; 82550; 82553; 82948; 83605; 83690; 83735; 83880; 84100; 84484; 85025; 85610; 85651; 85730; 86140; 87040; 87077; 87081; 87086; 87186; 93005; 96360; 99291; J1815; J1956; J3475; J3490; J7030; J7042; Q0092

== ENCOUNTER 2017-01-31 02:36 | Inpatient (IN) | payer OTHER ==
[~2017-01-31] VITALS: Ht 180.3 cm; Wt 87.1 kg
[~2017-01-31 02:36] MED LIST: ASPI81TA PO; CLOP75TA PO; DONE10TA3 PO; GLIP5TER PO; LISI10TA11 PO; MEMA10TA PO; METF500T2 PO; METR500T1 PO; ORE25 PO; SIMV10TA1 PO; SULF1TAB12 PO
[2017-01-31 03:00] VITALS: BP 99/55
[2017-01-31] MEDS ORDERED: ALBUTEROL SULFATE/IPRATROPIU 3 ML SOL IH ONE (04:05)
[2017-01-31] MEDS ORDERED: methylPREDNISolone SS 125 MG/2 ML VIAL IVP ONE (04:05)
[2017-01-31 04:26] LABS: BASOPHILS # (AUTO) 0.3 K/uL (0.00-0.22); BASOPHILS % (AUTO) 3.8 % (0.0-2.0); EOSINOPHILS # (AUTO) 0.3 K/uL (0-0.4); EOSINOPHILS % (AUTO) 3.4 % (0.0-4.0); HEMATOCRIT 37.5 % (36-52); HEMOGLOBIN 12.2 g/dL (12.0-18.0); LYMPHOCYTES # (AUTO) 1.5 K/uL (2.0-11.5); LYMPHOCYTES % (AUTO) 19.6 % (20.5-51.1); MEAN CORPUSCULAR HEMOGLOBIN 29 pg (27-31); MEAN CORPUSCULAR HGB CONC 33 g/dL (33-37); MEAN CORPUSCULAR VOLUME 89 fL (80-94); MONOCYTES # (AUTO) 0.4 K/uL (0.8-1.0); MONOCYTES % (AUTO) 5.5 % (1.7-9.3); NEUTROPHILS # (AUTO) 5.2 K/uL (1.8-7.7); NEUTROPHILS % (AUTO) 67.7 % (42.2-75.2); PLATELET COUNT (AUTO) 347 K/uL (140-450); RED BLOOD CELL COUNT(AUTO) 4.23 MIL/uL (4.20-6.10); RED CELL DISTRIBUTION WIDTH 14.1 % (11.6-13.7); WHITE BLOOD COUNT (AUTO) 7.8 K/uL (4.8-10.8)
[2017-01-31 04:29] LABS: ANION GAP 11.5 (8-16); CALCIUM 8.8 mg/dL (8.5-10.1); CHLORIDE 103 mmol/L (98-107); CREATININE 3.1 mg/dL (0.7-1.3); GLUCOSE 55 mg/dL (74-106); POTASSIUM 4.5 mmol/L (3.5-5.1); SODIUM SERUM 140 mmol/L (136-145); UREA NITROGEN, BLOOD 47 mg/dL (7-18)
[2017-01-31 04:35] LABS: ALANINE AMINOTRANSFERASE 8 U/L (16-63); ALBUMIN 2.8 g/dL (3.4-5.0); ALKALINE PHOSPHATASE 73 U/L (46-116); ASPARTATE AMINOTRANSFERASE 16 U/L (15-37); TOTAL BILIRUBIN 0.3 mg/dL (0.0-1.0); TOTAL PROTEIN, SERUM 6.3 g/dL (6.4-8.2)
[2017-01-31] MEDS ORDERED: ONDANSETRON 4 MG/2 ML VIAL IVP PRN (06:30)
[2017-01-31] MEDS ORDERED: ACETAMINOPHEN 325 MG TAB PO PRN (06:30)
[2017-01-31] MEDS ORDERED: SIMV10TA1 PO (06:32)
[2017-01-31] MEDS ORDERED: ASPI81CT89 PO (06:32)
[2017-01-31] MEDS ORDERED: DONE10TA3 PO (06:32)
[2017-01-31] MEDS ORDERED: METR500T1 PO (06:32)
[2017-01-31] MEDS ORDERED: SULF1TAB12 PO (06:32)
[2017-01-31] MEDS ORDERED: GLIP5TAB4 PO (06:32)
[2017-01-31] MEDS ORDERED: MEMA10TA PO (06:32)
[2017-01-31] MEDS ORDERED: ORE25 PO (06:32)
[2017-01-31] MEDS ORDERED: LISI10TA11 PO (06:32)
[2017-01-31] MEDS ORDERED: CLOP75TA55 PO (06:32)
[2017-01-31] MEDS ORDERED: ALBUTEROL SULFATE/IPRATROPIU 3 ML SOL IH PRN (06:55)
[2017-01-31 07:59] LABS: INR 1.3 (0.8-1.2); PROTHROMBIN TIME 12.7 secs (10.8-13.4)
[2017-01-31 08:09] LABS: CHOL/HDL RATIO 3.5 (1-4.5); FREE T4 (FREE THYROXINE) 1.3 ng/dL (0.76-1.46); MAGNESIUM 1.7 mg/dL (1.8-2.4); PHOSPHORUS 3.9 mg/dL (2.5-4.9); THYROID STIMULATING HORMONE 0.65 uIU/mL (0.34-3.74)
[2017-01-31 08:30] VITALS: BP 101/51
[2017-01-31] MEDS ORDERED: NON-FORMULARY ITEM (Metformin HCl* (Glucophage Xr*) 500 MG) PO SCH (09:00)
[2017-01-31] MEDS: HYDROCHLOROTHIAZIDE 25 MG TAB PO SCH (09:00)
[2017-01-31] MEDS: LISINOPRIL 10 MG TAB PO SCH (09:00)
[2017-01-31] MEDS: ASPIRIN 81 MG TAB.CHEW PO SCH (09:39)
[2017-01-31] MEDS: CLOPIDOGREL 75 MG TAB PO SCH (09:39)
[2017-01-31] MEDS: MEMANTINE 10 MG TAB PO SCH ×2 (09:39→21:12)
[2017-01-31] MEDS: DOCUSATE SODIUM 100 MG GELCAP PO SCH ×2 (09:40→21:12)
[2017-01-31] MEDS: NACL 0.9% 1,000 ML IV SCH ×2 (11:41→23:46)
[2017-01-31 12:00] VITALS: BP 102/58
[2017-01-31] MEDS ORDERED: DEXTROSE 50% 50 ML SYR IVP PRN (12:20)
[2017-01-31] MEDS: INSULIN LISPRO SLIDING SCALE 100 UNITS/ML VIAL SUBQ PRN ×3 (12:34→21:55)
[2017-01-31] MEDS: ALBUTEROL SULFATE/IPRATROPIU 3 ML SOL IH SCH ×2 (12:48→19:00)
[2017-01-31] MEDS: metroNIDAZOLE 500 MG TAB PO SCH ×2 (12:51→21:12)
[2017-01-31 15:36] LABS: APPEARANCE,URINE HAZY (CLEAR); BILIRUBIN,URINE NEGATIVE (NEGATIVE); BLOOD, URINE NEGATIVE (NEGATIVE); COLOR,URINE ORANGE (YELLOW); LEUKOCYTE ESTERASE ,URINE NEGATIVE (NEGATIVE); NITRITE, URINE NEGATIVE (NEGATIVE); PH,URINE 5.5 (5.0-9.0); PROTEIN,URINE NEGATIVE (NEGATIVE); UGLUCOSE 3+ (NEGATIVE); UROBILINOGEN,URINE 0.2 EU/dL (0.2 - 1)
[2017-01-31 15:41] LABS: RBC,URINE 0-5 (RARE) /HPF (0-5)
[2017-01-31 15:42] LABS: BACTERIA,URINE 1-9 (FEW) /HPF (None Seen); SQUAMOUS EPITHELIAL CELL,UR 0-3 (FEW) /LPF (0-3 (FEW))
[2017-01-31] MEDS: glipiZIDE 5 MG TAB PO SCH (15:48)
[2017-01-31 15:49] LABS: AMPHETAMINE, URINE NEG. ng/ml (NEG <=1000); BARBITURATE, URINE NEG. ng/ml (NEG <=200); BENZODIAZEPINE, URINE NEG. ng/mL (NEG <=200); CANNABINOID, URINE NEG. ng/mL (NEG <=50); COCAINE, URINE NEG. ng/mL (NEG <=300); OPIATE, URINE NEG. ng/mL (NEG <=2000); PHENCYCLIDINE SCREEN,URINE NEG. ng/mL (NEG <=25)
[2017-01-31 16:00] VITALS: BP 101/52
[2017-01-31] MEDS ORDERED: MAGNESIUM CHLORIDE 64 MG TABEC PO SCH (16:00)
[2017-01-31] MEDS: BLOOD GLUCOSE MONITORING 1 DEV DEV FS SCH ×2 (17:02→21:19)
[2017-01-31] MEDS ORDERED: HEPARIN PER PHARMACY MC PRN (17:50)
[2017-01-31] MEDS: hePARIN / DEXT 5% PREMIX 250 ML IV SCH (18:52)
[2017-01-31 20:00] VITALS: BP 98/52
[2017-01-31] MEDS: DONEPEZIL 10 MG TAB PO SCH (21:11)
[2017-01-31] MEDS: SULFAMETH/TRIMETH DS 800/160MG 1 TAB PO SCH (21:11)
[2017-01-31] MEDS: SIMVASTATIN 10 MG TAB PO SCH (21:12)
[2017-01-31 23:54] VITALS: BP 93/56
[2017-02-01 04:05] LABS: BASOPHILS # (AUTO) 0.2 K/uL (0.00-0.22); BASOPHILS % (AUTO) 2.3 % (0.0-2.0); EOSINOPHILS # (AUTO) 0.1 K/uL (0-0.4); EOSINOPHILS % (AUTO) 1.6 % (0.0-4.0); HEMATOCRIT 34.6 % (36-52); LYMPHOCYTES # (AUTO) 1.1 K/uL (2.0-11.5); LYMPHOCYTES % (AUTO) 12.2 % (20.5-51.1); MEAN CORPUSCULAR HEMOGLOBIN 28 pg (27-31); MEAN CORPUSCULAR HGB CONC 32 g/dL (33-37); MEAN CORPUSCULAR VOLUME 89 fL (80-94); MONOCYTES # (AUTO) 0.5 K/uL (0.8-1.0); MONOCYTES % (AUTO) 5.9 % (1.7-9.3); NEUTROPHILS # (AUTO) 7.3 K/uL (1.8-7.7); PLATELET COUNT (AUTO) 318 K/uL (140-450); RED BLOOD CELL COUNT(AUTO) 3.88 MIL/uL (4.20-6.10); RED CELL DISTRIBUTION WIDTH 13.9 % (11.6-13.7); WHITE BLOOD COUNT (AUTO) 9.2 K/uL (4.8-10.8)
[2017-02-01 04:23] LABS: CHLORIDE 104 mmol/L (98-107); POTASSIUM 4.8 mmol/L (3.5-5.1); SODIUM SERUM 138 mmol/L (136-145)
[2017-02-01 04:24] LABS: ANION GAP 10.8 (8-16); CALCIUM 8.6 mg/dL (8.5-10.1); CREATININE 2.2 mg/dL (0.7-1.3); GLUCOSE 232 mg/dL (74-106); MAGNESIUM 1.4 mg/dL (1.8-2.4); PHOSPHORUS 4.5 mg/dL (2.5-4.9); UREA NITROGEN, BLOOD 48 mg/dL (7-18)
[2017-02-01 04:30] VITALS: BP 111/61
[2017-02-01] MEDS: metroNIDAZOLE 500 MG TAB PO SCH ×3 (05:38→20:46)
[2017-02-01] MEDS: hePARIN / DEXT 5% PREMIX 250 ML IV SCH ×3 (05:42→18:17)
[2017-02-01] MEDS: BLOOD GLUCOSE MONITORING 1 DEV DEV FS SCH ×4 (06:37→21:15)
[2017-02-01] MEDS: ALBUTEROL SULFATE/IPRATROPIU 3 ML SOL IH SCH ×3 (06:38→18:46)
[2017-02-01] MEDS: INSULIN LISPRO SLIDING SCALE 100 UNITS/ML VIAL SUBQ PRN ×4 (06:38→21:17)
[2017-02-01] MEDS: glipiZIDE 5 MG TAB PO SCH ×2 (06:40→18:11)
[2017-02-01 08:00] VITALS: BP 102/45
[2017-02-01] MEDS: LISINOPRIL 10 MG TAB PO SCH (09:00)
[2017-02-01] MEDS: HYDROCHLOROTHIAZIDE 25 MG TAB PO SCH (09:00)
[2017-02-01] MEDS: CLINICAL MONITORING MC SCH (09:43)
[2017-02-01] MEDS: MAGNESIUM CHLORIDE 64 MG TABEC PO SCH (09:43)
[2017-02-01] MEDS: DOCUSATE SODIUM 100 MG GELCAP PO SCH ×2 (09:43→20:47)
[2017-02-01] MEDS: CLOPIDOGREL 75 MG TAB PO SCH (09:43)
[2017-02-01] MEDS: SULFAMETH/TRIMETH DS 800/160MG 1 TAB PO SCH ×2 (09:44→20:45)
[2017-02-01] MEDS: MEMANTINE 10 MG TAB PO SCH ×2 (09:44→20:47)
[2017-02-01] MEDS: ASPIRIN 81 MG TAB.CHEW PO SCH (09:44)
[2017-02-01 12:00] VITALS: BP 97/50
[2017-02-01] MEDS: NACL 0.9% 1,000 ML IV SCH ×2 (12:00→14:07)
[2017-02-01 16:00] VITALS: BP 108/59
[2017-02-01] MEDS ORDERED: methylPREDNISolone 4 MG TAB PO SCH (16:30)
[2017-02-01] MEDS ORDERED: LACTULOSE 20 GM/30 ML UDC PO ONE (16:40)
[2017-02-01 20:00] VITALS: BP 109/56
[2017-02-01] MEDS: methylPREDNISolone SS 40 MG/ML VIAL IVP SCH (20:44)
[2017-02-01] MEDS: DONEPEZIL 10 MG TAB PO SCH (20:45)
[2017-02-01] MEDS: SIMVASTATIN 10 MG TAB PO SCH (20:47)
[2017-02-02 00:10] VITALS: BP 124/70
[2017-02-02 04:25] VITALS: BP 108/68
[2017-02-02] MEDS: methylPREDNISolone SS 40 MG/ML VIAL IVP SCH ×3 (05:49→21:04)
[2017-02-02] MEDS: metroNIDAZOLE 500 MG TAB PO SCH ×3 (05:50→21:03)
[2017-02-02] MEDS: BLOOD GLUCOSE MONITORING 1 DEV DEV FS SCH ×4 (06:06→21:12)
[2017-02-02] MEDS: INSULIN LISPRO SLIDING SCALE 100 UNITS/ML VIAL SUBQ PRN ×4 (06:08→21:15)
[2017-02-02] MEDS: ALBUTEROL SULFATE/IPRATROPIU 3 ML SOL IH SCH ×3 (06:24→18:48)
[2017-02-02 08:00] VITALS: BP 114/79
[2017-02-02] MEDS: ASPIRIN 81 MG TAB.CHEW PO SCH (08:24)
[2017-02-02] MEDS: DOCUSATE SODIUM 100 MG GELCAP PO SCH ×2 (08:24→21:05)
[2017-02-02] MEDS: glipiZIDE 5 MG TAB PO SCH ×2 (08:24→17:56)
[2017-02-02] MEDS: LISINOPRIL 10 MG TAB PO SCH (08:25)
[2017-02-02] MEDS: MEMANTINE 10 MG TAB PO SCH ×2 (08:25→21:04)
[2017-02-02] MEDS: HYDROCHLOROTHIAZIDE 25 MG TAB PO SCH (08:25)
[2017-02-02] MEDS: CLOPIDOGREL 75 MG TAB PO SCH (08:25)
[2017-02-02] MEDS: MAGNESIUM CHLORIDE 64 MG TABEC PO SCH (08:25)
[2017-02-02] MEDS: SULFAMETH/TRIMETH DS 800/160MG 1 TAB PO SCH ×2 (08:26→21:03)
[2017-02-02] MEDS: CLINICAL MONITORING MC SCH (09:00)
[2017-02-02 12:00] VITALS: BP 121/62
[2017-02-02 14:22] LABS: BASOPHILS # (AUTO) 0.1 K/uL (0.00-0.22); BASOPHILS % (AUTO) 0.9 % (0.0-2.0); EOSINOPHILS # (AUTO) 0.2 K/uL (0-0.4); EOSINOPHILS % (AUTO) 1.7 % (0.0-4.0); HEMATOCRIT 36.1 % (36-52); HEMOGLOBIN 11.6 g/dL (12.0-18.0); LYMPHOCYTES # (AUTO) 0.4 K/uL (2.0-11.5); LYMPHOCYTES % (AUTO) 4.3 % (20.5-51.1); MEAN CORPUSCULAR HEMOGLOBIN 29 pg (27-31); MEAN CORPUSCULAR HGB CONC 32 g/dL (33-37); MEAN CORPUSCULAR VOLUME 89 fL (80-94); MONOCYTES # (AUTO) 0.1 K/uL (0.8-1.0); MONOCYTES % (AUTO) 0.6 % (1.7-9.3); NEUTROPHILS # (AUTO) 8.6 K/uL (1.8-7.7); NEUTROPHILS % (AUTO) 92.5 % (42.2-75.2); PLATELET COUNT (AUTO) 314 K/uL (140-450); RED BLOOD CELL COUNT(AUTO) 4.04 MIL/uL (4.20-6.10); RED CELL DISTRIBUTION WIDTH 13.9 % (11.6-13.7); WHITE BLOOD COUNT (AUTO) 9.4 K/uL (4.8-10.8)
[2017-02-02 14:36] LABS: ANION GAP 14.5 (8-16); CALCIUM 8.8 mg/dL (8.5-10.1); CARBON DIOXIDE 22.7 mmol/L (21-32); CHLORIDE 100 mmol/L (98-107); CREATININE 1.7 mg/dL (0.7-1.3); GLUCOSE 269 mg/dL (74-106); POTASSIUM 5.2 mmol/L (3.5-5.1); SODIUM SERUM 132 mmol/L (136-145); UREA NITROGEN, BLOOD 36 mg/dL (7-18)
[2017-02-02 14:40] LABS: MAGNESIUM 1.1 mg/dL (1.8-2.4)
[2017-02-02 16:00] VITALS: BP 103/51
[2017-02-02 20:00] VITALS: BP 119/78
[2017-02-02] MEDS ORDERED: SODIUM POLYSTYRENE 15 GM/60 ML UDBTL PO SCH (20:40)
[2017-02-02] MEDS: DONEPEZIL 10 MG TAB PO SCH (21:03)
[2017-02-02] MEDS: SIMVASTATIN 10 MG TAB PO SCH (21:03)
[2017-02-03] VITALS: BP 105/72
[2017-02-03] MEDS: NACL 0.9% 1,000 ML IV SCH (00:30)
[2017-02-03 04:00] VITALS: BP 118/61
[2017-02-03] MEDS: methylPREDNISolone SS 40 MG/ML VIAL IVP SCH (04:41)
[2017-02-03] MEDS: BLOOD GLUCOSE MONITORING 1 DEV DEV FS SCH ×3 (06:36→16:04)
[2017-02-03] MEDS: glipiZIDE 5 MG TAB PO SCH ×2 (06:37→17:14)
[2017-02-03] MEDS: INSULIN LISPRO SLIDING SCALE 100 UNITS/ML VIAL SUBQ PRN ×3 (06:37→16:07)
[2017-02-03] MEDS: ALBUTEROL SULFATE/IPRATROPIU 3 ML SOL IH SCH ×3 (06:51→19:13)
[2017-02-03 06:55] LABS: BASOPHILS # (AUTO) 0.1 K/uL (0.00-0.22); EOSINOPHILS # (AUTO) 0.1 K/uL (0-0.4); EOSINOPHILS % (AUTO) 1.4 % (0.0-4.0); HEMOGLOBIN 10.8 g/dL (12.0-18.0); LYMPHOCYTES # (AUTO) 0.6 K/uL (2.0-11.5); LYMPHOCYTES % (AUTO) 6.2 % (20.5-51.1); MEAN CORPUSCULAR HEMOGLOBIN 29 pg (27-31); MEAN CORPUSCULAR HGB CONC 32 g/dL (33-37); MEAN CORPUSCULAR VOLUME 90 fL (80-94); MONOCYTES # (AUTO) 0.4 K/uL (0.8-1.0); MONOCYTES % (AUTO) 3.5 % (1.7-9.3); NEUTROPHILS # (AUTO) 9.2 K/uL (1.8-7.7); NEUTROPHILS % (AUTO) 87.9 % (42.2-75.2); PLATELET COUNT (AUTO) 302 K/uL (140-450); RED CELL DISTRIBUTION WIDTH 14.2 % (11.6-13.7)
[2017-02-03 07:09] LABS: ANION GAP 11.1 (8-16); CARBON DIOXIDE 25.9 mmol/L (21-32); CHLORIDE 102 mmol/L (98-107); CREATININE 1.6 mg/dL (0.7-1.3); GLUCOSE 297 mg/dL (74-106); SODIUM SERUM 134 mmol/L (136-145); UREA NITROGEN, BLOOD 35 mg/dL (7-18)
[2017-02-03 07:24] LABS: MAGNESIUM 1.2 mg/dL (1.8-2.4); PHOSPHORUS 3.6 mg/dL (2.5-4.9)
[2017-02-03 08:00] VITALS: BP 111/61
[2017-02-03] MEDS: HYDROCHLOROTHIAZIDE 25 MG TAB PO SCH (08:41)
[2017-02-03] MEDS: DOCUSATE SODIUM 100 MG GELCAP PO SCH (08:41)
[2017-02-03] MEDS: ASPIRIN 81 MG TAB.CHEW PO SCH (08:41)
[2017-02-03] MEDS: MAGNESIUM CHLORIDE 64 MG TABEC PO SCH (08:41)
[2017-02-03] MEDS: MEMANTINE 10 MG TAB PO SCH (08:41)
[2017-02-03] MEDS: LISINOPRIL 10 MG TAB PO SCH (08:41)
[2017-02-03] MEDS: CLOPIDOGREL 75 MG TAB PO SCH (08:41)
[2017-02-03 09:02] LABS: WHITE BLOOD COUNT (AUTO) 10.4 K/uL (4.8-10.8)
[2017-02-03] MEDS ORDERED: CLINICAL MONITORING MC PRN (11:00)
[2017-02-03] MEDS: MAG SULF 2000 MG/WATER PREMIX 50 ML IV SCH ×2 (11:07→13:48)
[2017-02-03 12:00] VITALS: BP 100/53
[2017-02-03 16:00] VITALS: BP 106/54
[2017-02-03] MEDS ORDERED: BUPR-160 PO (16:42)
[2017-02-03] MEDS ORDERED: metFORMIN 850 MG TAB PO SCH (17:00)
[2017-02-04] MEDS ORDERED: metFORMIN 850 MG TAB PO SCH (08:00)
== END 2017-02-03 20:40 | disposition home or self-care (01) | DRG 190 ==
LOC: MED 02:36 → MTU 06:29 → OBSVTOIN 02-01 16:21
PROVIDERS: ADMIT Student in an Organized Health Care Education/Training Program; ATTEND Student in an Organized Health Care Education/Training Program
DX: J44.1 Chronic obstructive pulmonary disease with (acute) exacerbation (principal); N17.0 Acute kidney failure with tubular necrosis; D68.59 Other primary thrombophilia; E83.42 Hypomagnesemia; E11.65 Type 2 diabetes mellitus with hyperglycemia; Z66 Do not resuscitate; I25.10 Atherosclerotic heart disease of native coronary artery without angina pectoris; F15.90 Other stimulant use, unspecified, uncomplicated; I12.9 Hypertensive chronic kidney disease with stage 1 through stage 4 chronic kidney disease, or unspecified chronic kidney disease; E11.22 Type 2 diabetes mellitus with diabetic chronic kidney disease; F41.9 Anxiety disorder, unspecified; N40.0 Benign prostatic hyperplasia without lower urinary tract symptoms; N18.9 Chronic kidney disease, unspecified; F03.90 Unspecified dementia, unspecified severity, without behavioral disturbance, psychotic disturbance, mood disturbance, and anxiety; Z86.12 Personal history of poliomyelitis; Z79.82 Long term (current) use of aspirin; Z79.899 Other long term (current) drug therapy; Z90.49 Acquired absence of other specified parts of digestive tract; Z72.89 Other problems related to lifestyle; Z87.891 Personal history of nicotine dependence
CPT/HCPCS: 96374; 99285; G0378; 36415; 71010; 78582; 80048; 80053; 80305; 81001; 82150; 82948; 83036; 83690; 83735; 83880; 84100; 84439; 84443; 84484; 85025; 85379; 85610; 85730; 87081; 87086; 93005; 93925; 93970; 94640; A9540; J1644; J1815; J2920; J2930; J3475; J7030; J7620; Q0092